=== PATIENT | female | born 1945 | race Caucasian/White ===

== ENCOUNTER 2016-08-29 07:42 | Inpatient (IN) ==
--- NOTE | 2016-08-22 14:13 | EKG Report ---
Test Performed on : 08/22/2016 2:02:34 PM Test Reason : PAT Blood Pressure : / mmHG Vent. Rate : 051 BPM Atrial Rate : 051 BPM P-R Int : 178 ms QRS Dur : 088 ms QT Int : 450 ms P-R-T Axes : 017 029 062 degrees QTc Int : 414 ms Sinus bradycardia. Otherwise normal ECG No previous ECGs available Confirmed by Mu Paniagua MD ([id number]) on 08/23/2016 2:59:42 PM
[2016-08-22 14:20] LABS: MANUAL DIFF NEEDED? NO; URINE MICRO REVIEW NEEDED? NO; URINE SOURCE CLEAN CATCH
[2016-08-22 14:28] LABS: BASO% 1.4 % (0.0-0.8); EOS# 0.25 X1000 (0.0-0.7); EOS% 4.9 % (0.0-10.0); HEMATOCRIT 41.2 % (37.0-47.0); HEMOGLOBIN 13.6 g/dL (12.0-16.0); LYMPH# 1.54 X1000 (1.2-3.4); LYMPH% 29.9 % (20.5-51.1); MCH 29.6 PG (27-31); MCV 89.8 FL (81-99); MONO# 0.59 X1000 (0.11-0.59); MONO% 11.5 % (1.7-9.3); MPV 11.4 FL (7.4-10.4); NEUT% 52.3 % (42.2-75.2); PLT 233 X1000 (130-400); RBC 4.59 XMIL (4.2-5.4)
[2016-08-22 14:29] LABS: BILIRUBIN URINE NEGATIVE (NEGATIVE); BLOOD URINE NEGATIVE (NEGATIVE); COLOR STRAW; GLUCOSE URINE NEGATIVE (NEGATIVE); LEUKOCYTES URINE NEGATIVE (NEGATIVE); NITRITE URINE NEGATIVE (NEGATIVE); PH URINE 6.5; PROTEIN URINE NEGATIVE (NEGATIVE); SP GRAVITY URINE 1.005; TURBIDITY URINE CLEAR (CLEAR); UROBILINOGEN URINE NORMAL (NORMAL)
[2016-08-22 14:30] LABS: UR EPITHELIAL CELLS <10 /HPF (<10); URINE BACTERIA NEGATIVE /HPF; URINE RBC <10 /HPF (<10); URINE WBC <10 /HPF (<10)
[2016-08-22 14:41] LABS: INR 0.99; PROTIME 10.4 Seconds (9.2-11.7); PTT 25.7 Seconds (22.0-36.0)
[2016-08-22 15:18] LABS: AGAP 11; BUN 11 mg/dL (8-22); CALCIUM 9.1 mg/dL (8.8-10.2); CHLORIDE 101 mmol/L (98-107); COSMO 277; POTASSIUM 4.5 mmol/L (3.5-5.1); SODIUM 139 mmol/L (136-145); TCO2 27 mmol/L (25-35)
[2016-08-29] MEDS ORDERED: COLACE ONE (08:06)
[2016-08-29] MEDS ORDERED: REGLAN ONE (08:06)
[2016-08-29] MEDS ORDERED: PEPCID ONE (08:06)
[2016-08-29] MEDS ORDERED: CELEBREX ONE (08:07)
[2016-08-29] MEDS ORDERED: LR 1,000 ML ONE (08:07)
[2016-08-29] MEDS ORDERED: VANCOMYCIN 1 GM/NS 1 GM/250 ML IVPB ONE (08:07)
[2016-08-29] MEDS ORDERED: LYRICA ONE (08:07)
[2016-08-29] MEDS ORDERED: DIPRIVAN 1% ONE (08:08)
[2016-08-29] MEDS ORDERED: QUELICIN (DOSE) ONE (08:08)
[2016-08-29] MEDS ORDERED: XYLOCAINE-MPF 2% ONE (08:08)
[2016-08-29] MEDS ORDERED: NAROPIN 0.5% ONE (09:32)
[2016-08-29] MEDS ORDERED: DURAMORPH ONE (09:42)
[2016-08-29] MEDS ORDERED: TORADOL ONE (09:43)
[2016-08-29] MEDS ORDERED: SODIUM CHLORIDE 0.9% ONE (09:43)
[2016-08-29] MEDS ORDERED: CYKLOKAPRON 1,000 MG/NS 1,000 MG/100 ML IVPB ONE (09:43)
[2016-08-29] MEDS ORDERED: NEOSPORIN G.U. IRRIGANT ONE (09:44)
[2016-08-29] MEDS ORDERED: EXPAREL 1.3% ONE (09:44)
[2016-08-29] MEDS ORDERED: MARCAINE 0.25% PF/EPI 1:200,000 ONE (09:48)
[2016-08-29] MEDS ORDERED: ROBINUL ONE ×2 (10:18→10:36)
[2016-08-29] MEDS ORDERED: OFIRMEV 1000 MG/ISOTONIC SOLN 1,000 MG/100 ML BOTTLE ONE (10:21)
[2016-08-29] MEDS ORDERED: DECADRON ONE (10:21)
[2016-08-29 10:44] LABS: URINE MICRO REVIEW NEEDED? NO; URINE SOURCE CATH
[2016-08-29 10:53] LABS: BILIRUBIN URINE NEGATIVE (NEGATIVE); BLOOD URINE NEGATIVE (NEGATIVE); COLOR YELLOW; GLUCOSE URINE NEGATIVE (NEGATIVE); LEUKOCYTES URINE NEGATIVE (NEGATIVE); NITRITE URINE NEGATIVE (NEGATIVE); PH URINE 5.5; PROTEIN URINE NEGATIVE (NEGATIVE); SP GRAVITY URINE 1.013; TURBIDITY URINE CLEAR (CLEAR); UROBILINOGEN URINE NORMAL (NORMAL)
[2016-08-29 10:56] LABS: UR EPITHELIAL CELLS <10 /HPF (<10); URINE BACTERIA 3+ /HPF; URINE RBC <10 /HPF (<10); URINE WBC <10 /HPF (<10)
[2016-08-29] MEDS ORDERED: NS 1,000 ML ONE (12:26)
--- NOTE | 2016-08-29 13:07 | Diag Imaging Result Doc PS360 ---
EXAM: SHOULDER 1 VIEW LEFT INDICATION: l tsa TECHNIQUE: One view COMPARISON: None. FINDINGS: There has been a recent left shoulder arthroplasty. The arthroplasty hardware is in the expected position. There is no evidence of periprosthetic fracture. IMPRESSION: Satisfactory postoperative left shoulder. Electronically signed by Saul Velez 08/29/2016 1:04 PM
[2016-08-29] MEDS: NS 1,000 ML IV SCH (13:30)
[2016-08-29] MEDS ORDERED: ZOFRAN PO PRN (13:45)
[2016-08-29] MEDS ORDERED: MORPHINE IV PRN (13:45)
[2016-08-29] MEDS ORDERED: MILK OF MAGNESIA PO PRN (13:45)
[2016-08-29] MEDS: LOTREL 5/20 MG PO SCH (16:16)
[2016-08-29] MEDS: CELEXA PO SCH (16:17)
[2016-08-29] MEDS: PRILOSEC PO SCH (16:17)
[2016-08-29] MEDS: TYLENOL PO SCH ×2 (16:20→21:44)
[2016-08-29] MEDS ORDERED: CYKLOKAPRON 1,000 MG in NS 100 ML IV ONE (16:30)
[2016-08-29] MEDS ORDERED: PNEUMOVAX 23 IM ONE (17:00)
[2016-08-29] MEDS: OXY IR PO PRN (19:40)
[2016-08-29] MEDS ORDERED: VANCOMYCIN 1 GM/NS 1 GM/250 ML IVPB IV ONE (21:35)
[2016-08-29] MEDS: PERIDEX MT SCH (21:43)
[2016-08-29] MEDS: NEURONTIN PO SCH (21:43)
[2016-08-29] MEDS: COLACE PO SCH (21:44)
--- NOTE | 2016-08-29 23:18 | OPERATIVE NOTE ---
PROCEDURE DATE: 08/29/2016 PREOPERATIVE DIAGNOSIS: Left glenohumeral arthritis with chronic rotator cuff tear. POSTOPERATIVE DIAGNOSIS: Left glenohumeral arthritis with chronic rotator cuff tear. PROCEDURES: Left reverse shoulder arthroplasty with DePuy Delta Xtend size 12 press-fit stem, a 42 + 3 humeral cup, a 42 eccentric Glenosphere and a standard metaglene. SURGEON: Ko Potter MD. ORACLE ADF CONSULTANT: ANAY Guerrero. SECOND HAIR ASSISTANT: Chidi Regalado RN. ANESTHESIA: General. IV FLUIDS: 1500 mL lactated Ringer's. ESTIMATED BLOOD LOSS: 200 mL. COMPLICATIONS: None. INDICATION: The patient is a 71-year-old female with a chronic history of pain and discomfort in her left shoulder. She has had continued pain and discomfort despite appropriate nonoperative treatment. MRI was obtained and revealed a large retracted supraspinatus tear and some superior migration of the humeral head consistent with chronic tear as well as degenerative arthritis. A recommendation to proceed with left reverse shoulder arthroplasty was offered. Risks and benefits of surgery were explained, including the risks of anesthesia, , bleeding, infection, failure to relieve pain, postop stiffness, nerve injury, blood clots, and other imponderables. All questions were answered and the patient and family wished to proceed with surgery. DETAILS OF OPERATION: The patient was taken to the operating room and placed supine on the operating table. Once adequate anesthesia was obtained, the patient was placed in semi-Gee beach-chair position. The left shoulder was subsequently prepped and draped in usual sterile fashion. A standard deltopectoral incision was made with skin knife. Hemostasis was obtained using electrocautery. The deltopectoral interval was then developed. Retractors were then placed. The clavipectoral fascia was elevated as well. The subscapular stem was identified and was very poor quality. A stay suture was placed. It was released 1 cm medially at 2 insertions. The shoulder was dislocated anteriorly. Further resection of the posterior superior aspect of the rotator cuff was released. A starting reamer was then passed into the intramedullary canal. This was followed by sequential reaming up to a size 12. An intramedullary guide was then placed in position. Proximal humeral cutting block was pinned in position. The humeral head was then resected. After this had been performed, protective disk was placed. Attention then turned to the glenoid. Circumferential dissection was performed with a deep knife and a guide was then placed followed by a guide pin and the instrument in the glenoid appeared had good positioning. Reaming was then conducted. Central hole was then dilated. The wound was copiously irrigated with antibiotic pulsatile lavage. A standard metaglene was then impacted into position and 2 locking screws were placed and 1 nonlocking screw. Had good fixation of the metaglene. The wound was copiously irrigated once again with antibiotic pulsatile lavage. A standard 42 eccentric Glenosphere with eccentricity placed inferiorly. Attention then turned to the proximal humerus where an intramedullary guide was placed and the proximal humerus was reamed. Copious irrigation was then performed once again with antibiotic pulsatile lavage. A size 12 press-fit stem was then impacted in position using impaction bone grafting from autologous bone graft from the humeral head. It had good stability and good fixation. A trial cup was then performed with a 42+ 3 humeral cup. It had excellent stability and range of motion. The trial cup was removed. A 42+ 3 humeral cup was then placed after copious irrigation once again. Shoulder was reduced, carried through range of motion. Had good range of motion and good stability. The subscapularis tendon was retracted and it was very poor quality. It was not amenable to repair. The wound was copiously irrigated with antibiotic pulsatile lavage. Exparel was placed in deep soft tissue, as well as subcutaneous tissue. The wound was copiously irrigated once again. A 2-0 Vicryl was then used to repair the subcutaneous tissue, followed by skin cj. Running 2-0 Prolene. Benzoin and Steri-Strips applied. Adaptic, 4x4s, ABD pad, and tape applied to the left shoulder followed by shoulder immobilizer. All counts were correct. The patient tolerated the procedure well and was transferred to the recovery room in stable condition. cc: Ko Potter MD
[2016-08-30] MEDS: TYLENOL PO SCH ×4 (03:28→21:57)
[2016-08-30] MEDS: SYNTHROID PO SCH ×2 (05:58→08:16)
[2016-08-30 06:18] LABS: HEMATOCRIT 35.5 % (37.0-47.0); HEMOGLOBIN 11.4 g/dL (12.0-16.0)
[2016-08-30 06:26] LABS: AGAP 8; BUN 7 mg/dL (8-22); CALCIUM 8.7 mg/dL (8.8-10.2); CHLORIDE 108 mmol/L (98-107); COSMO 278; POTASSIUM 4.1 mmol/L (3.5-5.1); SODIUM 140 mmol/L (136-145); TCO2 24 mmol/L (25-35)
--- NOTE | 2016-08-30 06:42 | PROGRESS NOTE ---
DATE: 08/30/2016 SUBJECTIVE: The patient is a pleasant 71-year-old female who is 1 day status post left reverse total shoulder arthroplasty. She is currently resting comfortably. OBJECTIVE: On physical exam, the patient's left upper extremity, her wound looks good. There are no signs or symptoms of infection. She is neurovascularly intact distally, and has good layout man strength. Her hemoglobin is 11.4, hematocrit 35.5. IMPRESSIONS: Postoperative day #1, status post left reverse shoulder arthroplasty. PLAN: At this point, will Hep-Lock her IV and discontinue her Frances and change her dressing. Will consult Medical Recruiter for discharge planning. cc: Ko Potter MD
[2016-08-30] MEDS: OXY IR PO PRN ×3 (08:15→22:25)
[2016-08-30] MEDS: PRILOSEC PO SCH (08:16)
[2016-08-30] MEDS: CELEXA PO SCH (08:16)
[2016-08-30] MEDS: COLACE PO SCH ×2 (08:16→20:47)
[2016-08-30] MEDS: LOTREL 5/20 MG PO SCH (08:17)
[2016-08-30] MEDS: PERIDEX MT SCH ×2 (08:17→20:48)
[2016-08-30] MEDS: NEURONTIN PO SCH (20:47)
[2016-08-31] MEDS: NS 1,000 ML IV SCH ×3 (03:05→15:30)
[2016-08-31] MEDS: TYLENOL PO SCH ×4 (04:05→23:02)
[2016-08-31] MEDS: SYNTHROID PO SCH ×2 (05:19→06:04)
[2016-08-31 05:47] LABS: HEMATOCRIT 36.1 % (37.0-47.0); HEMOGLOBIN 11.6 g/dL (12.0-16.0)
--- NOTE | 2016-08-31 06:43 | PROGRESS NOTE ---
DATE: 08/31/2016 SUBJECTIVE: Patient is a pleasant, 71-year-old female who is 2 days status post left reverse shoulder arthroplasty. She is currently resting comfortably this morning. She did well through the night. OBJECTIVE: On physical exam of left upper extremity. The wound looks good. There is no signs or symptoms of infection. She is neurovascularly intact throughout. LABORATORY DATA: Her hemoglobin is 11.6, hematocrit is 36.1. IMPRESSIONS: Postop day #2, status post left reverse total shoulder arthroplasty. PLAN: At this point, Field Radio Technician have been consulted for discharge planning and she will continue with mobilization as tolerated and we are checking for possible rehab placement. cc: Ko Potter MD MTDD
[2016-08-31] MEDS: OXY IR PO PRN ×4 (06:54→23:02)
[2016-08-31] MEDS: PRILOSEC PO SCH (08:48)
[2016-08-31] MEDS: COLACE PO SCH ×2 (08:48→22:44)
[2016-08-31] MEDS: LOTREL 5/20 MG PO SCH (08:49)
[2016-08-31] MEDS: PERIDEX MT SCH ×3 (08:49→22:44)
[2016-08-31] MEDS: CELEXA PO SCH (08:49)
--- NOTE | 2016-08-31 13:16 | DISCHARGE SUMMARY ---
ADMISSION DATE: 08/29/2016 DISCHARGE DATE: ADMITTING DIAGNOSIS: Left glenohumeral arthritis with chronic rotator cuff tear. DISCHARGE DIAGNOSIS: Left glenohumeral arthritis with chronic rotator cuff tear status post left reverse total shoulder arthroplasty. BRIEF HISTORY: The patient is a pleasant 71-year-old female with a chronic history of worsening pain and discomfort in her left shoulder. The pain has progressed to affect her activities of daily living. She has continued pain and discomfort despite appropriate nonoperative treatment. MRI revealed large retracted supraspinatus tendon tear with superior migration of the humeral head consistent with chronic tear as well as degenerative arthritis. My recommendation to proceed with left reverse shoulder arthroplasty was offered. Risks and benefits were discussed and all questions were answered. The patient wished to proceed with surgery. HOSPITAL COURSE AND TREATMENT: The patient admitted to the hospital and underwent left reverse shoulder arthroplasty. She tolerated the procedure well. The patient had uneventful postoperative course. By postoperative day #2, her hemoglobin and hematocrit stabilized at 11.6 and 36.1. Prior to discharge, patient is afebrile, tolerating a regular diet and her pain was well controlled with p.o. medication. Her wound looked good. There were no signs or symptoms of infection. It is felt the patient would benefit from inpatient rehabilitation. She was agreeable to this. DISCHARGE MEDICATIONS: OxyIR 5 mg 1-2 p.o. q.4 hours p.r.n. pain. For remaining medications, please see medication list. DISCHARGE INSTRUCTIONS: 1. The patient will be discharged for inpatient rehabilitation. 2. Consult physical therapy for passive range of motion of the left shoulder with forward flexion, external rotation, pendulum, active and passive range of motion of the elbow, wrist and fingers. 3. DC suture in 10 days. 4. Follow up in the office in 3-4 weeks. cc: Ko Potter MD
[2016-08-31] MEDS: NEURONTIN PO SCH ×2 (19:37→22:44)
[2016-09-01] MEDS: NS 1,000 ML IV SCH ×2 (02:51→16:49)
[2016-09-01] MEDS: TYLENOL PO SCH ×4 (04:50→21:34)
[2016-09-01] MEDS: OXY IR PO PRN ×2 (04:51→15:46)
[2016-09-01 05:26] LABS: HEMATOCRIT 34.4 % (37.0-47.0)
[2016-09-01] MEDS: SYNTHROID PO SCH (06:21)
[2016-09-01] MEDS: PRILOSEC PO SCH (09:56)
[2016-09-01] MEDS: LOTREL 5/20 MG PO SCH (09:56)
[2016-09-01] MEDS: COLACE PO SCH ×2 (09:56→21:34)
[2016-09-01] MEDS: CELEXA PO SCH (09:56)
[2016-09-01] MEDS: PERIDEX MT SCH ×2 (09:57→21:34)
[2016-09-01] MEDS: NEURONTIN PO SCH (21:34)
[2016-09-02] MEDS: TYLENOL PO SCH ×4 (04:06→21:04)
[2016-09-02] MEDS: OXY IR PO PRN ×3 (04:06→19:24)
[2016-09-02] MEDS: SYNTHROID PO SCH (06:02)
[2016-09-02] MEDS: PERIDEX MT SCH ×2 (09:45→21:05)
[2016-09-02] MEDS: CELEXA PO SCH (09:45)
[2016-09-02] MEDS: COLACE PO SCH ×2 (09:45→21:05)
[2016-09-02] MEDS: PRILOSEC PO SCH (09:45)
[2016-09-02] MEDS: LOTREL 5/20 MG PO SCH (09:46)
[2016-09-02] MEDS: NS 1,000 ML IV SCH ×2 (13:10→16:25)
[2016-09-02] MEDS: NEURONTIN PO SCH (21:04)
[2016-09-03] MEDS: TYLENOL PO SCH ×2 (04:52→09:51)
[2016-09-03] MEDS: OXY IR PO PRN (04:53)
[2016-09-03] MEDS: NS 1,000 ML IV SCH (04:54)
[2016-09-03] MEDS: SYNTHROID PO SCH (06:10)
[2016-09-03] MEDS: CELEXA PO SCH (09:51)
[2016-09-03] MEDS: COLACE PO SCH (09:51)
[2016-09-03] MEDS: LOTREL 5/20 MG PO SCH (09:51)
[2016-09-03] MEDS: PRILOSEC PO SCH (09:51)
[2016-09-03] MEDS: PERIDEX MT SCH (09:52)
[2016-09-03 13:22] VITALS: BP 120/53
--- NOTE | 2016-09-04 07:40 | DISCHARGE SUMMARY ---
ADMISSION DATE: 08/29/2016 DISCHARGE DATE: 09/03/2016 DISCHARGE DIAGNOSIS: Left shoulder reverse hemiarthroplasty. DISCHARGE MEDICATIONS: See discharge medication list. DISPOSITION: Patient discharged to rehab with instructions for a reverse shoulder arthroplasty protocol, instructed for routine wound care, instructed to return to see Dr. Potter in 1 week. HOSPITAL COURSE: On the day of admission, the patient underwent a left reverse total shoulder arthroplasty. She has no postoperative problems. At discharge, she is afebrile, tolerating a regular diet, ambulating well with physical therapy. Her wound is clean, dry, and intact without sign of infection. She is discharged to rehab in stable condition and instructed to follow up as described above. cc: MD Ko Blackmon MD
== END 2016-09-03 14:00 | disposition home or self-care (01) ==
LOC: SURHOLD 07:42 → 4N 11:11
PROVIDERS: ADMIT Orthopaedic Surgery Adult Reconstructive Orthopaedic Surgery; ATTEND Orthopaedic Surgery Adult Reconstructive Orthopaedic Surgery

== ENCOUNTER 2016-10-18 10:15 | Inpatient (IN) ==
[2016-10-18] MEDS ORDERED: DUONEB (A & A) INH ONE (10:58)
--- NOTE | 2016-10-18 12:01 | Diag Imaging Result Doc PS360 ---
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 There is cardiomegaly. There may be COPD. Scattered granulomata are present which have not changed since 04/27/2013. IMPRESSION: No evidence of acute disease. Mild cardiomegaly. Electronically signed by Mark Berg 10/18/2016 11:59 AM
[2016-10-18 12:39] LABS: MANUAL DIFF NEEDED? NO
[2016-10-18 12:46] LABS: BASO% 0.6 % (0.0-0.8); EOS# 0.35 X1000 (0.0-0.7); EOS% 4.4 % (0.0-10.0); HEMATOCRIT 42.1 % (37.0-47.0); HEMOGLOBIN 13.4 g/dL (12.0-16.0); IMM GRAN# 0.01 X1000 (0.0-0.04); IMM GRAN% 0.1 % (0.0-0.5); LYMPH# 1.24 X1000 (1.2-3.4); LYMPH% 15.8 % (20.5-51.1); MCH 28.8 PG (27-31); MCHC 31.8 g/dL (33-37); MCV 90.5 FL (81-99); MONO# 0.71 X1000 (0.11-0.59); MPV 11.4 FL (7.4-10.4); NEUT% 70.1 % (42.2-75.2); PLT 244 X1000 (130-400); RBC 4.65 XMIL (4.2-5.4)
[2016-10-18 13:02] LABS: AGAP 10; ALBUMIN 4.5 g/dL (3.5-5.0); ALKALINE PHOSPHATASE 95 U/L (32-104); BUN 8 mg/dL (8-22); CALCIUM 9.1 mg/dL (8.8-10.2); CHLORIDE 102 mmol/L (98-107); COSMO 282; GOT 18 U/L (10-30); GPT 8 U/L (10-36); POTASSIUM 3.4 mmol/L (3.5-5.1); SODIUM 142 mmol/L (136-145); TCO2 30 mmol/L (25-35); TOTAL PROTEIN 7.7 g/dL (6.3-8.3)
[2016-10-18 14:35] LABS: BLOOD TYPE ARTERIAL; METHB 0.4 % (0.0-1.5); O2(CT) 17.5 mL/dL (15.0-23.0); PCO2(98.6) 45 mmHg (35-45); PO2(98.6) 55 mmHg (60-100); SAMPLE BLOOD; SAO2 91.3 % (95.0-100.0); THB 13.8 g/dL (11.5-17.4); pH(98.6) 7.42 (7.35-7.45)
[2016-10-18 14:59] LABS: ALLEN TEST YES; DRAW SITE R RADIAL; MODALITY CANNULA
--- NOTE | 2016-10-18 15:16 | PROVIDER DOCUMENTATION ---
This chart was entered by Damaris Vance Scribe, acting as scribe for Dakota Roca PA. HPI-EENT General - General Chief Complaint: Wheezing Stated Complaint: SOB Time Seen by Provider: 10/18/16 10:30 Source: patient Allergies/Adverse Reactions: Patient Allergies Allergy/AdvReac Type Severity Reaction Status Date / Time codeine Allergy Intermediate cramping Verified 08/22/16 13:20 Penicillins Allergy Intermediate welps Verified 08/22/16 13:20 cefixime [From Suprax] Allergy SWELLING Verified 08/22/16 13:20 lactase [From Dairy Aid] Allergy Unknown Verified 08/22/16 13:21 Sulfa (Sulfonamide Allergy SWELLING Verified 08/22/16 13:20 Antibiotics) NSAIDS (Non-Steroidal AdvReac Unknown Verified 08/22/16 13:20 Anti-Inflamma Home Medications: Home Medication List Medication Instructions Recorded Confirmed Last Taken Type Omeprazole [Prilosec] 40 mg PO DAILY 08/28/13 08/29/16 08/28/16 History Levothyroxine [Synthroid] 0.1 mg PO QAM 03/22/14 08/29/16 08/28/16 History Amlodipine Besylate/Benazepril 1 each PO DAILY 08/22/16 08/29/16 08/28/16 History [Lotrel 10-40 mg Capsule] Citalopram Hydrobromide [Celexa] 20 mg PO DAILY 08/22/16 08/29/16 08/28/16 History Gabapentin 400 mg PO QHS 08/22/16 08/29/16 08/28/16 History Docusate Sodium [Colace] 100 mg PO BID capsule 08/31/16 Unknown Rx Magnesium Hydroxide [Milk of 30 ml PO Q6H PRN PRN #0 udc 08/31/16 Unknown Rx Magnesia] Oxycodone I.r. [Oxy Ir] 5 - 10 mg PO Q4H PRN PRN #60 08/31/16 Unknown Rx capsule - History of Present Illness-EENT General Nature of Presenting Problem: PT is a 71 y/o F that presents to ED with cc of SOB onset this morning. PT states she has had cough and congestion for two days. PT has a hx of asthma but currently is not on inhalers- hasn't used her inhalers or nebulizer in years. PT denies fever. EENT Location: reports: nose (congestion) Quality of Pain: reports: none Severity: reports: mild Onset/Duration: reports: abrupt, 2 days ago (for congestion), this morning (for SOB) Timing: reports: still present Prearrival Treatment: Initiated no prearrival treatment Associated Symptoms: reports: cough, nasal congestion/drainage. denies: fever, sore throat - Ears Ear Problem Symptoms: reports: none - Nose Nose Problem Symptoms: other (CONGESTION) - Throat/Dental Throat/Dental Problem Symptoms: reports: none Review of Systems - Adult - REVIEW OF SYSTEMS - ADULT Constitutional: denies: chills, fever Eyes: reports: no symptoms reported Ears, Nose, Mouth & Throat: reports: sinus problem, other (COUGH) Cardiovascular: reports: no symptoms reported Respiratory: reports: cough, shortness of breath Gastrointestinal: reports: no symptoms reported Genitourinary: reports: no symptoms reported Musculoskeletal: reports: no symptoms reported Integumentary: reports: no symptoms reported Neurological: reports: no symptoms reported Psychiatric: reports: no symptoms reported Endocrine: reports: no symptoms reported Hematologic/Lymphatic: reports: no symptoms reported Allergic/Immunologic: reports: no symptoms reported All Other Systems: Reviewed and Negative Past History - Adult - PAST MEDICAL HISTORY-ADULT Review of Records: reports: Old Records Reviewed, Nursing Assessment Review, Medications Reviewed Cardiovascular: reports: HTN Gastrointestinal: reports: GERD Musculoskeletal: reports: arthritis Endocrine/Immune: reports: thyroid disorder - PRIOR SURGERIES/PROCEDURES Surgical/Procedure History: reports: cholecystectomy, hysterectomy, hernia repair, gastric bypass - IMMUNIZATION STATUS Childhood Immunizations: See Nurse Assessment Flu Vaccine: See Nurse Assessment Physical Exam- EENT - Physical Exam EENT Initial Vital Signs Reviewed: Yes General Appearance: appears well, alert, no apparent distress Eye Exam: bilateral eye: normal inspection, PERRL, EOMI Ear Exam: bilateral ear: auricle normal, canal normal, TM normal Nasal Exam: normal inspection Throat Exam: normal mouth inspection, pharynx normal Neck: non-tender, full range of motion, supple Respiratory: chest non-tender, lungs clear, no accessory muscle use, wheezing ( right side), increased rate. negative: crackles, rales, rhonchi, stridor Cardiovascular: normal peripheral pulses, regular rate, rhythm, no edema Abdominal Exam: normal bowel sounds, non tender, soft. negative: distended, guarding, rigid, rebound, tenderness Lymphatic: no adenopathy Back Exam: normal inspection, no CVA tenderness, no vertebral tenderness Extremity: normal range of motion, non-tender Integumentary: normal color, normal turgor, warm/dry Neurologic: viscose department worker II-XII nml as tested, grossly normal Psych/Mental Status: normal mood/affect, normal thought content, oriented x 3 Progress - PLAN OF CARE/RESULTS Progress/Plan/Lab Results: Vital Signs - 8 hr 10/18/16 10:25 10/18/16 11:05 10/18/16 14:41 Temperature 99.3 F Pulse Rate 59 L 64 61 Respiratory Rate 22 16 18 Blood Pressure 175/72 131/081 O2 Sat by Pulse Oximetry 92 L 96 10/18/16 14:58 Temperature Pulse Rate 65 Respiratory Rate 22 Blood Pressure 162/069 O2 Sat by Pulse Oximetry 93 L Laboratory Results - last 24 hr 10/18/16 10/18/16 10/18/16 12:29 12:29 12:29 WBC RBC Hgb Hct MCV MCH MCHC RDW Std Deviation Plt Count MPV Immature Gran % (Auto) Neut % (Auto) Lymph % (Auto) [place] % (Auto) Eos % (Auto) Baso % (Auto) Immature Gran # (Auto) Neut # (Auto) Lymph # (Auto) [place] # (Auto) Eos # (Auto) Baso # (Auto) APTT (Factor Assay) Specimen Type Sample Site pH pCO2 pO2 HCO3 Base Excess Oxyhemoglobin ABG O2 Sat (Calculated) ABG O2 Saturation ABG Carboxyhemoglobin ABG Methemoglobin Amari Test A-a O2 Difference Total Hemoglobin Lactate Blood Gas Modality FiO2 % Sodium 142 Potassium 3.4 L Chloride 102 Carbon Dioxide 30 Anion Gap 10 BUN 8 Creatinine 0.6 Estimated GFR/1.73 m2 > 60 BUN/Creatinine Ratio 13 Glucose 111 H Calculated Osmolality 282 Calcium 9.1 Total Bilirubin 0.30 AST 18 ALT 8 L Alkaline Phosphatase 95 Creatine Kinase 54 Troponin T < 0.010 [id number] Pept 399 H Total Protein 7.7 Albumin 4.5 Globulin 3.0 Albumin/Globulin Ratio 1.0 10/18/16 10/18/16 10/18/16 12:29 12:29 14:11 WBC 7.87 RBC 4.65 Hgb 13.4 Hct 42.1 MCV 90.5 MCH 28.8 MCHC 31.8 L RDW Std Deviation 13.2 Plt Count 244 MPV 11.4 H Immature Gran % (Auto) 0.1 Neut % (Auto) 70.1 Lymph % (Auto) 15.8 L [place] % (Auto) 9.0 Eos % (Auto) 4.4 Baso % (Auto) 0.6 Immature Gran # (Auto) 0.01 Neut # (Auto) 5.51 Lymph # (Auto) 1.24 [place] # (Auto) 0.71 H Eos # (Auto) 0.35 Baso # (Auto) 0.05 APTT (Factor Assay) 27.0 Specimen Type ARTERIAL Sample Site R RADIAL pH 7.42 pCO2 45 pO2 55 L HCO3 27.9 H Base Excess 4.0 H Oxyhemoglobin 90.3 L ABG O2 Sat (Calculated) 17.5 ABG O2 Saturation 91.3 L ABG Carboxyhemoglobin 0.70 ABG Methemoglobin 0.4 Amari Test YES A-a O2 Difference 88.0 Total Hemoglobin 13.8 Lactate 1.40 Blood Gas Modality CANNULA FiO2 % 28.0 Sodium Potassium Chloride Carbon Dioxide Anion Gap BUN Creatinine Estimated GFR/1.73 m2 BUN/Creatinine Ratio Glucose Calculated Osmolality Calcium Total Bilirubin AST ALT Alkaline Phosphatase Creatine Kinase Troponin T Clt-Q-Rhlpiyocyhf Pept Total Protein Albumin Globulin Albumin/Globulin Ratio Orders Category Date Time Status CHEST-2 VIEWS [RAD] Stat Exams 10/18/16 10:30 Completed ABG [RESP] Routine Lab 10/18/16 14:11 Completed CBC WITH ELECTRONIC DIFF [HEME] Stat Lab 10/18/16 12:29 Completed CK TOTAL [CHEM] Stat Lab 10/18/16 12:29 Completed COMPREHENSIVE METABOLIC PANEL [CHEM] Stat Lab 10/18/16 12:29 Completed FERRITIN Urgent Lab 10/18/16 12:29 Received FOLATE Urgent Lab 10/18/16 12:29 Received PRO B-NATRIURETIC PEPTIDE Stat Lab 10/18/16 12:[address] [COAG] Stat Lab 10/18/16 12:29 Completed TROPONIN T Stat Lab 10/18/16 12:29 Completed VITAMIN B12 Urgent Lab 10/18/16 12:29 Received VITAMIN D 25 HYDROXY Urgent Lab 10/18/16 12:29 Received Albuterol 2.5MG/Ipratrop 0.5MG [Duoneb (A & A)] Med 10/18/16 10:58 Discontinued 3 ml INH NOW ONE Aerosol Treatments Routine Oth 10/18/16 10:58 Completed Aerosol Treatments Stat Oth 10/18/16 10:58 Completed EKG [EKG] Stat Ther 10/18/16 11:53 Ordered Result Diagrams: 10/18/16 12:29 10/18/16 12:29 - REASSESSMENT Reassessment #1 Time Reassessed: 12:20 (Checked on pt, feeling better with her breathing and no longer audibly wheezing. Concern for CHF, and now pt on O2 at 2 lpm, sat at 95% . ) Reassessment #2 Time Reassessed: 14:08 (Discussed with Dr. Marion. Pt feels better after her nebulizer, asking for a nebulizer to go home with. Dr. Marion recommends abx, steroids, inhaler/nebulizer for home. Follow up with primary care physician. ) Reassessment #3 Time Reassessed: 14:16 (Discussing with pt about her labs, pt O2 sat decreases to 88% while on 2lpm and is short of breath. Order ABG. ) Reassessment #4 Time Reassessed: 15:01 (Discussed with Dr. Marion. Concerned that she becomes SOB with talking, on 2lpm. Pt has asthma but is not wheezing currently after her breathing treatment. States she feels better, but uncomfortable sending home. Page Dr. Moffett, Dr. Marion agrees. ) - EKG 1 Time of EKG reading by physician:: 11:57 EKG Read and Signed by:: Cooper Marion EKG Interpretation (*Must complete 3 of following elements*): Abnormal Rate: 63 Rhythm: normal sinus QRS: LVH (moderate voltage criteria for LVH) Comments: Possible lateral infarct - CONSULTS/PCP/HOSPITALIST Notification #1 *Consult/PCP/Hospitalist*: Dr. Moffett, Hospitalist Time Discussed: 15:13 (Discussed admission for observation for her shortness of breath. Pt desat when I talk with her and appears to be short of breath. ABG shows low PO2. Agrees with admission. ) Consult Disposition: Admit Departure - Departure Date of Disposition Decision: 10/18/16 Time of Disposition Decision: 15:13 DIAGNOSIS: Shortness of breath Disposition: ADMITTED INPATIENT 09 Certified Medical Emergency: Emergent Condition: Stable Referrals and Follow-Ups: Aris Wright MD [Primary Care Provider] - - Critical Care Note This patient required my direct & personal management of CC.: No Attestation - Physician/ ZULEYMA Attestation Patient care was provided by Advanced Practice Provider:: Yes Advanced Practice Provider:: Dakota Roca Advanced Practice Provider documentation review:: The Mid-level provider documentation, treatment plan and medical decision making was reviewed by the physician who agrees with all treatment and medical decision making by the MLP. The physician spent face to face time with patient:: No Advanced Practice Provider documentation review:: Supervising physician onsite and consulted in the evaluation and care of this patient. The physician did not have a face to face encounter with the patient. This chart was documented by the indicated scribe, (Damaris Vance, Sharonda) and accurately reflects the services I performed and decisions made by me, Dakota Roca PA, as attested by the provider's signature.
[2016-10-18 16:38] LABS: VITAMIN D 25 HYDROXY 5.2 NG/DL
[2016-10-18] MEDS ORDERED: ZOFRAN IV PRN (17:24)
[2016-10-18] MEDS ORDERED: TYLENOL PO PRN (17:32)
[2016-10-18] MEDS ORDERED: TUSSIONEX LIQUID PO PRN (17:36)
[2016-10-18] MEDS ORDERED: ROBITUSSIN-DM PO PRN (17:40)
[2016-10-18] MEDS ORDERED: LEVAQUIN 750 MG/D5W 750 MG/150 ML IVPB IV SCH (17:45)
[2016-10-18] MEDS ORDERED: DUONEB (A & A) INH PRN (17:55)
--- NOTE | 2016-10-18 18:10 | HISTORY AND PHYSICAL ---
PRIMARY CARE PHYSICIAN: Dr. Aris Wright. CHIEF COMPLAINT: Shortness of breath, cough. HISTORY OF PRESENT ILLNESS: This is a 71-year-old female with a history of hypertension, hypothyroid who presented to the emergency room complaining of shortness of breath, cough, subjective fever and chills. She stated that she started feeling bad yesterday afternoon, kind of "achy" all over with sinus drainage. developing 3-4 pillow orthopnea during the night. This morning and she realized she was wheezing and short of breath at rest. She is sitting at about a 75 degrees angle during the exam , being as low as she can recline and breathe. She reports breathing easier after a duoneb treatment. She has a history of childhood asthma although it has been many, many years since she has had any difficulty. She has not used an inhaler since she was a child. She is noted to have a D-dimer of 2.45 . She underwent shoulder surgery August 29 , about 7 weeks ago. PAST MEDICAL HISTORY: Hypertension, hypothyroid. Diverticulosis with diverticulitis. Chronic anemia. PAST SURGICAL HISTORY: Cholecystectomy, carpal tunnel surgery and gastric bypass. SOCIAL HISTORY: She denies alcohol, tobacco, or illicit drug use. ALLERGIES: Codeine, penicillin, Suprax, lactase, sulfa and NSAIDs. REVIEW OF SYSTEMS: A 14 point review of systems discussed with patient with pertinent positives stated in HPI. She denied chest pain, palpitations, dizziness, syncope, PND, nausea, vomiting, diarrhea, constipation, black or bloody vomitus, black or bloody stools, hematuria, dysuria, frequency, urgency. PHYSICAL EXAMINATION: GENERAL: This is a 71-year-old female who is sitting up in the bed with no distress. VITAL SIGNS: Blood pressure is 157/63 with a heart rate of 63, respirations are 20, temperature is 100.4 with saturations of 93-95% on 2 L nasal cannula. HEENT: Head is normocephalic, atraumatic. Pupils equal, round, react to light. EOMs are intact. Sclerae anicteric. Mucous membranes are moist. NECK: Supple. Trachea midline. CARDIOVASCULAR: Regular rate and rhythm. S1, S2 appreciated. PULMONARY: She has scattered wheezes throughout. Chest does rise and fall symmetrically with respiration. GASTROINTESTINAL: Is soft, nontender, nondistended. Bowel sounds in all 4 quadrants. EXTREMITIES: No clubbing, cyanosis, or edema. Calves nontender. Pulses palpable x4. LAB: WBC is 7.8. D-dimer is 2.45. Potassium is 3.4. Chest x-ray revealed no acute processes. ASSESSMENT AND PLAN: 1. Dyspnea on exertion, shortness of breath.- Duonebs q4h with q2h prn. Steroids to taper Supplemental oxygen Incentive Spirometer Steroids to taper 2. Fever. Levaquin IV. Tylenol Blood Cultures pending. 3. Elevated D-dimer in a patient who is 6 weeks postop orthopedic surgery. - CTA Pulmonary. 4. Hypertension. 5. Hypothyroid. 6. Diabetes Mellitus - PBG/SSI Hold oral agents We will place her on telemetry. Further treatments pending hospital course. Dictated by BROOKS Knight for Mario Moffett MD cc: BROOKS Knight MD [facility]
[2016-10-18] MEDS: SOLU-MEDROL IV SCH (18:19)
[2016-10-18] MEDS: DUONEB (A & A) INH SCH ×2 (19:20→22:53)
--- NOTE | 2016-10-18 19:42 | Diag Imaging Result Doc PS360 ---
EXAM: CT ANGIOGRM/PULMONARY ARTERIES INDICATION: elevated ddimer, SOB, orthopnea TECHNIQUE: Dose reduction protocol was used. In addition to standard thin section CTA images, coronal reformations and coronal MIPS were obtained. COMPARISON: None. FINDINGS: The contrast bolus is somewhat suboptimal. However, there are no discrete filling defect to indicate pulmonary embolism. There is mild aortic atherosclerotic calcification. There is no evidence of aortic dissection. There is perhaps mild ectasia of the ascending aorta. It measures about 3.9 cm in diameter. However, there is excessive motion artifact here making it difficult to accurately measure. There is cardiomegaly. There are few calcified mediastinal and hilar lymph nodes indicating prior granulomatous disease. There are multiple calcified granulomata scattered throughout both lungs. There is a 6.2 mm nodule abutting the minor fissure and probably in the anteroinferior right upper lobe that is not calcified. This certainly may represent a noncalcified granuloma. Consider continued surveillance based on Fleischner Society criteria. The lungs are clear, otherwise. There is no pleural fluid collection and no pneumothorax. IMPRESSION: 1.Limited contrast bolus but no definite pulmonary embolism. 2.Ectatic ascending aorta. 3.Cardiomegaly. 4.Evidence of prior granulomatous disease as well as a 6.2 mm noncalcified nodule in the right lung. Consider follow-up based on Fleischner Society criteria. Electronically signed by Saul Velez 10/18/2016 7:40 PM
[2016-10-18] MEDS ORDERED: NEURONTIN PO SCH (21:00)
[2016-10-18] MEDS: HUMALOG DOSE (PARKWAY) SUBQ SCH (21:01)
[2016-10-19] MEDS: SOLU-MEDROL IV SCH (02:41)
[2016-10-19] MEDS: DUONEB (A & A) INH SCH ×4 (03:04→15:57)
--- NOTE | 2016-10-19 03:47 | PROGRESS NOTE ---
DATE: 10/18/2016 ADDENDUM: Patient seen. She is currently in mild distress. She is having moderate wheezing. She is able to talk in complete sentences, although has to stop at the end of the sentence. Cardiovascular is regular rate. Chest, moderate wheezing, mildly labored. Abdomen soft, obese. PLAN: We will admit patient to the hospital. The patient seen and examined. Plan discussed with nurse practitioner. Please see note for full details. We will place patient on Solu-Medrol, breathing treatments. Continue to follow. Further orders as needed. cc: Mario Moffett MD
[2016-10-19] MEDS: HUMALOG DOSE (PARKWAY) SUBQ SCH ×3 (06:13→16:30)
[2016-10-19 06:30] LABS: HEMATOCRIT 39.6 % (37.0-47.0); HEMOGLOBIN 12.7 g/dL (12.0-16.0); MCH 28.8 PG (27-31); MCHC 32.1 g/dL (33-37); MCV 89.8 FL (81-99); MPV 11.5 FL (7.4-10.4); RBC 4.41 XMIL (4.2-5.4)
[2016-10-19] MEDS ORDERED: SYNTHROID PO SCH (07:00)
[2016-10-19] MEDS ORDERED: PRILOSEC PO SCH (07:00)
[2016-10-19 07:19] LABS: AGAP 11; ALBUMIN 4.1 g/dL (3.5-5.0); ALKALINE PHOSPHATASE 84 U/L (32-104); BUN 8 mg/dL (8-22); CALCIUM 9.4 mg/dL (8.8-10.2); CHLORIDE 102 mmol/L (98-107); COSMO 280; GOT 13 U/L (10-30); GPT 7 U/L (10-36); MAGNESIUM 2.1 mg/dL (1.5-2.7); POTASSIUM 3.6 mmol/L (3.5-5.1); SODIUM 139 mmol/L (136-145); TCO2 26 mmol/L (25-35); TOTAL PROTEIN 7.4 g/dL (6.3-8.3)
[2016-10-19] MEDS ORDERED: NORVASC PO SCH (09:00)
[2016-10-19] MEDS ORDERED: AMLODIPINE BESYLATE PO SCH (09:00)
[2016-10-19] MEDS ORDERED: LOTENSIN PO SCH (09:00)
[2016-10-19] MEDS ORDERED: CELEXA PO SCH (09:00)
[2016-10-19] MEDS ORDERED: BENAZEPRIL PO SCH (09:00)
[2016-10-19] MEDS ORDERED: SOLU-MEDROL IV ONE ×2 (09:00→14:00)
[2016-10-19] MEDS: ULTRAM PO PRN ×2 (09:42→16:10)
[2016-10-19 16:19] VITALS: BP 138/56
[2016-10-19] MEDS ORDERED: VENTOLIN HFA INH ONE (18:00)
--- NOTE | 2016-10-20 14:02 | DISCHARGE SUMMARY ---
ADMISSION DATE: 10/18/2016 DISCHARGE DATE: 10/19/2016 DISCHARGE DIAGNOSES: 1. Asthmatic bronchitis improved. 2. Obesity. 3. History of gastric bypass. 4. Others. 5. Elevated D-dimer with a negative ultrasound and negative CTA. 6. Hypertension. CONSULTATIONS: None. PROCEDURES: None. BRIEF HOSPITAL COURSE: Patient is a 71-year-old female who was admitted as noted on the HPI treated in the usual fashion. Placed on antibiotics, breathing treatments, IV steroids and Levaquin. She tolerated very well. On discharge her breathing was much improved. In fact, she only had faint wheezing instead of her moderate to severe wheezing that she had prior to discharge. Patient was very excited and was wanting to go home and therefore she will be discharged home. DISPOSITION: The patient will be discharged home on Levaquin and breathing treatments. A prescription for nebulizer as well as albuterol was written. She will finish 5 more days of steroids as well as antibiotics and will follow up with her primary care in 1-2 weeks. cc: Mario Moffett MD
== END 2016-10-19 19:00 | disposition home or self-care (01) ==
LOC: P.ED 10:15 → P.MEDSURG 16:00
PROVIDERS: ATTEND Family Medicine